=== PATIENT | female | born 1945 | race Caucasian/White ===

== ENCOUNTER → 2016-12-28 | Outpatient (CLI) | payer MEDICARE, OTHER ==
[~2016-12-28] MED LIST: AMLO10TA2 PO; ASPI1TAB57 PO; ASPI81CH6 CHEW; CALC1TAB87 PO; ENAL20TA PO; ENOX30P SQ; HYDR-3288 PO; METO50TA PO; THYR113. PO; VITA1000 PO
[2016-12-28 10:48] LABS: AUTOMATED NEUTROPHIL # 3.4 TH/MM3 (1.8-7.7); BASOPHIL # 0.1 TH/MM3 (0-0.2); BASOPHIL % 1.1 % (0.0-2.0); EOSINOPHIL # 0.4 TH/MM3 (0-0.4); EOSINOPHIL % 5.5 % (0.0-4.0); HEMATOCRIT 44.7 % (35.0-46.0); HEMO FLAGS DIFF FINAL; LYMPH % 30.8 % (9.0-44.0); MEAN CELL VOLUME 90.9 FL (80.0-100.0); MEAN CORPUSCULAR HEMOGLOBIN 30.4 PG (27.0-34.0); MEAN CORPUSCULAR HGB CONC 33.4 % (32.0-36.0); MONO % 10.6 % (0.0-8.0); PLATELET COUNT 200 TH/MM3 (150-450); RED BLOOD COUNT 4.92 MIL/MM3 (4.00-5.30); RED CELL DISTRIBUTION WIDTH 13.8 % (11.6-17.2); WHITE BLOOD COUNT 6.6 TH/MM3 (4.0-11.0)
[2016-12-28 10:58] LABS: BLOOD, URINE SMALL (NEG); COMMENT (UR) CULT NOT INDICATED; CULTURE IF INDICATED CULT NOT INDICATED; GLUCOSE,URINE NEG (NEG); KETONE, URINE NEG (NEG); MUCUS URINE FEW /lpf (OCC); NITRITE,URINE NEG (NEG); SQUAMOUS EPITHELIAL CELL URINE 2 /hpf (0-5); URINE COLOR YELLOW (YELLW/STRAW)
[2016-12-28 10:59] LABS: APTT (PATIENT) 24.4 SEC (24.3-30.1); INTERNATIONAL NORMALIZED RATIO 0.9 RATIO; PROTHROMBIN TIME - PATIENT 9.8 SEC (9.8-11.6)
[2016-12-28 11:08] LABS: WESTERGREN SEDIMENTATION RATE 1 mm/hr (0-30)
[2016-12-28 11:16] LABS: ALT (GPT) 24 U/L (10-53); ANION GAP 7 MEQ/L (5-15); AST (GOT) 19 U/L (15-37); BICARBONATE 31.7 MEQ/L (21.0-32.0); BLOOD UREA NITROGEN 13 MG/DL (7-18); CHLORIDE 105 MEQ/L (98-107); GLOMERULAR FILTRATION RATE 77 ML/MIN (>89); GLUCOSE,FASTING 87 MG/DL (74-99); POTASSIUM 5.1 MEQ/L (3.5-5.1); SODIUM (NA) 144 MEQ/L (136-145)
[2016-12-28 11:19] LABS: ALKALINE PHOSPHATASE 64 U/L (45-117); TOTAL BILIRUBIN ADULT 0.4 MG/DL (0.2-1.0)
--- NOTE | 2016-12-28 11:43 | RADRPT ---
EXAM DATE/TIME: 12/28/2016 11:33 [facility] COMPARISON: No previous studies available for comparison. INDICATIONS : Evaluate for pneumonia, pneumothorax, or communicable disease. Pre-op right total knee. MEDICAL HISTORY : Chronic obstructive pulmonary disease. Hypertension SURGICAL HISTORY : Hysterectomy. Thyroidectomy. ENCOUNTER: Initial ACUITY: 1 day PAIN SCORE: 0/10 LOCATION: Bilateral chest FINDINGS: PA and lateral views of the chest demonstrate a normal-sized cardiac silhouette with mild calcificati on of the aorta. There is no effusion, consolidation, or pneumothorax. The bones and soft tissues dem onstrate no acute abnormality. There are degenerative changes of the thoracic spine. Old healed left rib fractures are visualized. CONCLUSION: No acute cardiopulmonary abnormality is identified. Kermit Tamayo MD on December 28, 2016 at 11:39 Board Certified Radiologist. This report was verified electronically.
--- NOTE | 2016-12-28 17:58 | EKG ---
Date Performed: 12/28/2016 Time Performed: 09:21:54 PTAGE: 71 years EKG: SINUS BRADYCARDIA BORDERLINE ECG NO PREVIOUS TRACING DOCTOR: Toma Lopez Interpretating Date/Time 12/28/2016 17:56:59
== END ==
LOC: CPRE 08:52
PROVIDERS: ATTEND Orthopaedic Surgery Sports Medicine
DX: Z01.810 Encounter for preprocedural cardiovascular examination (principal); Z01.811 Encounter for preprocedural respiratory examination; Z01.812 Encounter for preprocedural laboratory examination; Z01.818 Encounter for other preprocedural examination; M25.50 Pain in unspecified joint; M17.11 Unilateral primary osteoarthritis, right knee; Z96.60 Presence of unspecified orthopedic joint implant; Z79.01 Long term (current) use of anticoagulants
CPT/HCPCS: 36415; 71020; 80053; 81001; 85025; 85610; 85652; 85730; 93005

== ENCOUNTER 2017-01-14 05:08 | Inpatient (IN) | payer MEDICARE, OTHER ==
[~2017-01-14] VITALS: Ht 165.1 cm; Wt 87.1 kg
[~2017-01-14 05:08] MED LIST changes: -ASPI81CH6 CHEW; -ENOX30P SQ; -HYDR-3288 PO
[2017-01-14] MEDS ORDERED: METOPROLOL TARTRATE 25 MG TAB PO PRN (05:45)
[2017-01-14] MEDS ORDERED: SODIUM CHLORIDE 0.9% IV SCH (05:45)
[2017-01-14] MEDS ORDERED: CHLORHEXIDINE GLUCONATE 4% SOLN 120 ML BTL TOPICAL SCH (05:45)
[2017-01-14] MEDS ORDERED: ceFAZolin 2 GM PREMIX 50 ML IV SCH (05:45)
[2017-01-14] MEDS ORDERED: CHLORHEXIDINE GLUCONATE 2 % 1 PACK (2 CLOTHS) TOPICAL PRN (05:45)
[2017-01-14] MEDS ORDERED: TRANEXAMIC ACID IV SCH (05:45)
[2017-01-14] MEDS ORDERED: ROPIVACAINE PERI-ARTICULAR INJECTION. P-ARTICULR SCH ×5 (05:45)
[2017-01-14] MEDS ORDERED: POVIDONE IODINE 7.5% SCRUB 118 ML BOTTLE TOPICAL SCH (05:45)
[2017-01-14] MEDS ORDERED: INSULIN HUMAN REGULAR 1,000 UNITS/10 ML VIAL SQ PRN (05:45)
[2017-01-14] MEDS ORDERED: VANCOMYCIN 1000 MG/NS 250 ML (for <70 kg) IV SCH ×2 (05:45)
[2017-01-14] MEDS ORDERED: POVIDONE IODINE 5% (ANTISEPSIS KIT) 4 APPLICATIONS EACH NARE PRN (05:45)
[2017-01-14] MEDS ORDERED: LACTATED RINGER'S 1000 ML IV PRN (05:45)
[2017-01-14] MEDS ORDERED: TRANEXAMIC PERI-ARTICULAR 3,000 MG/NS 100 ML P-ARTICULR SCH ×2 (05:45)
[2017-01-14] MEDS ORDERED: DEXAMETHASONE SOD PHOS 20 MG/5 ML VIAL IV PRN (05:45)
[2017-01-14] MEDS ORDERED: SODIUM CHLORID 0.9% 500 ML IV PRN (05:45)
[2017-01-14] MEDS ORDERED: GENTAMICIN SULFATE 80 MG/2 ML VIAL ONE (06:00)
[2017-01-14] MEDS ORDERED: BUPIVACAINE LIPOSOME PF 1.3% 20 ML VIAL ONE (06:36)
[2017-01-14] MEDS ORDERED: HYDR-3288 PO (06:51)
[2017-01-14] MEDS ORDERED: ENOX30P SQ (06:51)
[2017-01-14] MEDS ORDERED: ASPI81CH6 CHEW (06:52)
[2017-01-14] MEDS ORDERED: SODIUM CHLORIDE 0.9% FLUSH 5 ML FLUSH IVF PRN (07:00)
[2017-01-14] MEDS ORDERED: ZOLPIDEM TARTRATE 5 MG TAB PO PRN (07:00)
[2017-01-14] MEDS ORDERED: NALOXONE HCL 0.4 MG/ML AMP IV PUSH PRN (07:00)
[2017-01-14] MEDS ORDERED: BISACODYL 10 MG SUPP RECTAL PRN (07:00)
[2017-01-14] MEDS ORDERED: diphenhydrAMINE HCL 50 MG/ML VIAL IV PUSH PRN (07:00)
[2017-01-14] MEDS ORDERED: ONDANSETRON HCL 4 MG/2 ML VIAL IVP PRN (07:00)
[2017-01-14] MEDS ORDERED: MORPHINE SULFATE 4 MG/ML INJ IV PUSH PRN (07:00)
[2017-01-14] MEDS ORDERED: Post-op Orders (for Pharmacy) MISC XX ONE (07:00)
[2017-01-14] MEDS: ENALAPRIL MALEATE 10 MG TAB PO SCH ×2 (09:00→22:24)
[2017-01-14] MEDS: METOPROLOL TARTRATE 50 MG TAB PO SCH ×2 (09:00→22:21)
[2017-01-14] MEDS: CHOLECALCIFEROL (VIT D3) 1000 UNIT TAB PO SCH (09:00)
--- NOTE | 2017-01-14 09:18 | MP ---
cc: WILFRID CARVALHO DATE OF SURGERY: 01/14/2017 PREOPERATIVE DIAGNOSIS Right knee osteoarthritis. POSTOPERATIVE DIAGNOSES Right knee osteoarthritis. PROCEDURE Right total knee arthroplasty. SURGEON Dr. Wilfrid Carvalho. IMPACT HAMMER OPERATOR DONTAE Horton ANESTHESIA General with adductor canal femoral nerve block. ESTIMATED BLOOD LOSS 50 ccs. TOURNIQUET TIME 28 minutes at 250 mmHg. COMPLICATIONS None. IMPLANTS USED DePuy Attune size 7 posterior stabilized femoral component, size 6 rotating platform tibia baseplate, size 5 mm polyethylene tibial insert, size 35 patella. JUSTIFICATION The patient is a 71-year-old female with history of severe end-stage osteoarthritis involving the right knee. She has severe disabling pain with standing, walking, ambulation, weight-bear activities, severe pain at rest. She has failed greater than three months of nonoperative conservative treatment to include medication therapy, injections, ambulatory assisted aids, home exercise program, activity modification, weight loss. X-rays of the right knee reveal severe end-stage osteoarthritis, [id number] joint space narrowing, subchondral sclerosis, subchondral cyst osteophyte formation with a large valgus deformity and subluxation. The patient was counseled as to risks, benefits and alternatives to a total knee arthroplasty. The risks were discussed which include but not limited to anesthesia, bleeding, infection, damage to nerves, blood vessels, pain and stiffness, failure of components, blood clots, pulmonary embolism and even . The patient's pain is severe. She favored benefits over the risks, she did wish to proceed with surgery. PROCEDURE IN DETAIL A written consent was obtained. The patient was identified by name, taken to the operating room and placed supine on the operating table. General anesthesia was administered as well as 2 grams of IV Ancef and 1 gram of IV vancomycin. A well-padded tourniquet was placed in the right thigh. The right lower extremity was prepped and draped using isopropyl alcohol, Hibiclens solution and Chloraprep solution. After time-out was performed an Esmarch bandage was used to exsanguinate the right lower extremity and tourniquet was inflated to 250 mmHg. A longitudinal incision was made over the anterior aspect of the right knee. A medial parapatellar arthrotomy was performed and the patella was everted. The patella resection guide was used to resect 7 mm of patella. The size 35 mm guide was placed, three drill holes were placed and 35 mm trial fit well. Attention was turned to the femur where intramedullary guide domenico was placed and the distal femoral guide was set to remove 10 mm of distal femur 5 degrees off the anatomic valgus axis alignment. An oscillating saw was used to perform the distal femoral cut. Attention was turned to the tibia where an extramedullary tibial guide was set to remove 5 mm off the lowest portion of the medial tibial plateau. The tibia guide was pinned in place and tibia cut was performed. The 5-mm spacer block showed full extension. Attention was turned back to the femur where AP sizing block measured a 7. The anterior reference 3 degree external rotation guide was used to pin a size [address] The anterior, posterior and chamfer cuts were performed. The anterior, posterior and chamfer cuts were performed. A size 7 PCL box cut was pinned in place and PCL was boxed out with an oscillating saw. The medial and lateral meniscus remnants were removed as well as bone and soft tissue debris from posterior portion of the knee. A size 7 tibia baseplate was pinned in place. The tibia was drilled and punched. Trial components were evaluated and final components cemented in place. With the current components, the leg could achieve full extension 0 degrees and flexion 140, no evidence of tibial lift-off, varus-valgus balance appeared appropriate and symmetric and the patella was noted to track centrally. With the tourniquet deflated Bovie cautery was used for hemostasis. Surgical wounds were thoroughly irrigated with sterile saline pulse lavage antibiotic impregnated solution. The arthrotomy incision was closed with #1 Vicryl suture, subcutaneous layer with 2-0 Vicryl suture, skin was closed with Dermabond. Sterile dressings were applied. The patient tolerated the procedure well with no intraoperative complications noted. Oneil Colvin, Physician Heat Treat Operator Certified was present during the entire procedure to include patient positioning, the procedure itself. The medical necessity of physician certified pharmacist assistant was indicated in this case due to the complexity of the procedure. He assisted with appropriate manipulation of the leg and also traction of muscle, tendon, bone, neurovascular structures. He assisted with preparation of bone and also implantation of the prosthetic replacement. MD MARISSA Virgen/FLORI /8:20 AM 8:53 AM
[2017-01-14] MEDS: SODIUM CHLORIDE 0.9% FLUSH 5 ML FLUSH IVF SCH ×2 (09:28→22:21)
[2017-01-14] MEDS: SODIUM CHLOR 0.9% 1000 ML INJ 1,000 ML IV SCH ×2 (09:28→18:43)
[2017-01-14] MEDS ORDERED: DO NOT ADM ANY ANTICOAGULANT DRUGS PRN (09:30)
[2017-01-14 09:50] VITALS: BP 116/62; PULSE 57; RESP 18; TEMP 95.8; O2SAT 94
--- NOTE | 2017-01-14 10:01 | RADRPT ---
EXAM DATE/TIME: 01/14/2017 09:00 [facility] COMPARISON: No previous studies available for comparison. INDICATIONS : Post-op right knee replacement. MEDICAL HISTORY : None. SURGICAL HISTORY : Total knee replacement, right. ENCOUNTER: Initial ACUITY: 1 day PAIN SCORE: 0/10 LOCATION: Right Knee FINDINGS: AP and lateral views of the knee following arthroplasty reveals a prosthesis in anatomic alignment. F racture is not appreciated. Surgical drain is evident CONCLUSION: Status post total knee arthroplasty. Alex Silva MD FACR Board Certified Radiologist. This report was verified electronically.
[2017-01-14] MEDS: ACETAMINOPHEN/HYDROcodone 325 MG/7.5 MG TAB PO PRN ×4 (10:03→22:20)
[2017-01-14 12:00] VITALS: BP 136/85; PULSE 56; RESP 17; TEMP 97.9; O2SAT 97
[2017-01-14] MEDS ORDERED: LACTATED RINGER'S 1000 ML INJ 1,000 ML IV ONE (12:00)
[2017-01-14] MEDS ORDERED: ePHEDrine/NS 25 MG/5 ML SYR IV ONE (12:00)
[2017-01-14] MEDS ORDERED: MIDAZOLAM HCL 2 MG/2 ML VIAL IV ONE (12:00)
[2017-01-14] MEDS ORDERED: PROPOFOL 200 MG/20 ML AMP IV ONE (12:00)
[2017-01-14] MEDS ORDERED: LIDOCAINE HCL 1% PF 5 ML SYRINGE OTHER ONE (12:00)
[2017-01-14] MEDS ORDERED: ONDANSETRON HCL 4 MG/2 ML VIAL IV PUSH ONE (12:00)
[2017-01-14] MEDS ORDERED: GLYCOPYRROLATE 1 MG/5 ML SYRINGE IV PUSH ONE (12:00)
[2017-01-14] MEDS ORDERED: SODIUM CHLORIDE 0.9% 20 ML VIAL IV ONE (12:00)
[2017-01-14] MEDS ORDERED: NEOSTIGMINE 3 MG/3 ML SYR IV ONE (12:00)
[2017-01-14] MEDS ORDERED: ROCURONIUM INJ 50 MG/5 ML SYRINGE IV PUSH ONE (12:00)
[2017-01-14] MEDS ORDERED: MORPHINE SULFATE 4 MG/ML INJ IV ONE (12:00)
--- NOTE | 2017-01-14 15:54 | PD.CONS ---
HPI Service [facility] Consult Requested By Dr. Cartagena Reason for Consult Medical management Primary Care Physician Tiffanie Murray DO Diagnoses: History of Present Illness The patient is a 71-year-old female with past medical history of hypertension and COPD who is presenting to the hospital for elective right knee replacement. She said she has been having arthritis in her right knee for the past 5 or 6 years. She believes she fell on it along time ago and that started the pain. She says over the years she has had a couple of meniscus repairs on that knee as well. She has tried physical therapy and steroid injections but they have not helped much. She does walk on her own but when she goes to the grocery store she says she uses buggies. She takes ibuprofen for pain control every once in a while. She tolerated the procedure well and is currently not in much pain. She has been working with physical therapy. She is tolerating a diet. She is breathing comfortably. She has no acute concerns at this time. Review of Systems Except as stated in HPI: all other systems reviewed are Neg Past Family Social History Allergies: Coded Allergies: No Known Allergies (Unverified , 12/28/16) Past Medical History Hypertension COPD Past Surgical History Tonsillectomy 2 Thyroidectomy Hysterectomy Right meniscal repair 2 Active Ordered Medications Current Medications Medications (Trade) Dose Ordered Sig/Lesly Route Start Time Stop Time Status Last Admin (Decadron Inj) 10 mg LEAK INSPECTOR PRN IV 01/14/17 05:45 01/15/17 05:44 01/14/17 06:15 (Betadine 7.5% Scrub) 1 applic ONCE TOPICAL 01/14/17 05:45 01/17/17 05:44 (Hibiclens 4% Top Soln) 1 applic ONCE TOPICAL 01/14/17 05:45 01/17/17 05:44 01/14/17 06:10 Cefazolin Sodium/ Dextrose 50 ml @ 100 mls/hr LEAK INSPECTOR IV 01/14/17 05:45 01/17/17 05:44 01/14/17 06:25 Vancomycin HCl 1000 mg/Sodium Chloride 250 ml @ 250 mls/hr LEAK INSPECTOR IV 01/14/17 05:45 01/17/17 05:44 01/14/17 06:30 Tranexamic Acid 1305 mg/Sodium Chloride 113.05 ml @ 200 mls/ hr ONCE IV 01/14/17 05:45 01/14/17 16:00 01/14/17 07:01 Ropivacaine 24.63 ml/Ketorolac Tromethamine 30 mg/Epinephrine HCl 0.5 mg/ Clonidine 80 mcg/ Sodium Chloride 100 ml @ 200 mls/hr ONCE P-ARTICULR 01/14/17 05:45 01/14/17 17:00 01/14/17 08:03 Tranexamic Acid 3000 mg/Sodium Chloride 130 ml @ 260 mls/hr ONCE P-ARTICULR 01/14/17 05:45 01/14/17 16:00 01/14/17 08:03 Lactated Ringer's 1,000 ml @ 30 mls/hr Q24H PRN IV 01/14/17 05:45 01/17/17 05:44 01/14/17 06:10 Sodium Chloride 500 ml @ 30 mls/hr [id number] PRN IV 01/14/17 05:45 01/17/17 05:44 (Lopressor) 25 mg LEAK INSPECTOR PRN PO 01/14/17 05:45 01/17/17 05:44 (Betadine 5% Antisepsis Kit) 1 applic LEAK INSPECTOR PRN EACH NARE 01/14/17 05:45 01/17/17 05:44 01/14/17 06:20 (Chlorhexidine 2% Cloth) 3 pack LEAK INSPECTOR PRN TOPICAL 01/14/17 05:45 01/17/17 05:44 (NovoLIN R INJ) See Protocol Table ... LEAK INSPECTOR PRN SQ 01/14/17 05:45 01/17/17 05:44 (Norvasc) 10 mg DAILY PO 01/14/17 09:00 (Vitamin D3) 1,000 units DAILY PO 01/14/17 09:00 (Vasotec) 20 mg BID PO 01/14/17 09:00 (Lopressor) 50 mg BID PO 01/14/17 09:00 Non-Formulary Medication 113.75 mg DAILY PO 01/14/17 09:00 UNV Sodium Chloride 1,000 ml @ 100 mls/hr Q10H IV 01/14/17 06:48 01/14/17 09:28 (NS Flush) 2 ml UNSCH PRN IVF 01/14/17 07:00 (NS Flush) 2 ml BID IVF 01/14/17 09:00 01/14/17 09:28 Cefazolin Sodium 1000 mg/Sodium Chloride 100 ml @ 200 mls/hr Q6H IV 01/14/17 13:00 01/15/17 01:29 01/14/17 12:45 (Lovenox Inj) 30 mg Q24H SQ 01/14/17 19:00 (Morphine Inj) 3 mg Q3H PRN IV PUSH 01/14/17 07:00 ([place] 7.5-325 Mg) 1 tab Q4H PRN PO 01/14/17 07:00 01/14/17 15:17 ([place] 7.5-325 Mg) 2 tab Q4H PRN PO 01/14/17 07:00 01/14/17 10:03 (Theragran M Tab) 1 tab BID PO 01/15/17 21:00 03/16/17 20:59 (Zofran Inj) 4 mg Q6H PRN IVP 01/14/17 07:00 (Colace) 100 mg BID PO 01/15/17 21:00 (Ambien) 5 mg HS PRN PO 01/14/17 07:00 (Dulcolax Supp) 10 mg DAILY PRN RECTAL 01/14/17 07:00 (Narcan Inj) 0.4 mg UNSCH PRN IV PUSH 01/14/17 07:00 (Benadryl Inj) 25 mg Q6H PRN IV PUSH 01/14/17 07:00 Miscellaneous Information ALL NURSING DEPARTME... UNSCH PRN .XX 01/14/17 09:30 01/15/17 09:29 Family History The patient denies any significant family history Social History The patient quit smoking in 1997. She never drank alcohol. Physical Exam Vital Signs Vital Signs Date Time Temp Pulse Resp B/P (MAP) Pulse Ox O2 Delivery O2 Flow Rate FiO2 01/14/17 12:00 97.9 56 17 136/85 (102) 97 01/14/17 09:50 95.8 57 18 116/62 (80) 94 01/14/17 09:30 97.6 60 16 111/58 (75) 95 Nasal Cannula 2 01/14/17 09:15 56 18 107/57 (74) 94 Nasal Cannula 2 01/14/17 09:00 59 19 102/55 (71) 95 Nasal Cannula 2 01/14/17 08:45 62 18 99/55 (70) 96 Nasal Cannula 2 01/14/17 08:39 97.7 70 20 95/65 (75) 94 Nasal Cannula 2 01/14/17 06:02 97.9 53 16 141/72 (95) 99 Physical Exam GENERAL: This is a well-nourished, well-developed patient, in no apparent distress. SKIN: No rashes, ecchymoses or lesions. Cool and dry. HEAD: Atraumatic. Normocephalic. No temporal or scalp tenderness. EYES: Pupils equal round and reactive. Extraocular motions intact. No scleral icterus. No injection or drainage. ENT: Nose without bleeding, purulent drainage or septal hematoma. Throat without erythema, tonsillar hypertrophy or exudate. Uvula midline. Airway patent. NECK: Trachea midline. No JVD or lymphadenopathy. Supple, nontender, no meningeal signs. CARDIOVASCULAR: Regular rate and rhythm without murmurs, gallops, or rubs. RESPIRATORY: Clear to auscultation. Breath sounds equal bilaterally. No wheezes , rales, or rhonchi. GASTROINTESTINAL: Abdomen soft, non-tender, nondistended. No hepato-splenomegaly , or palpable masses. No guarding. MUSCULOSKELETAL: Trace edema noted in left lower extremity. Right lower extremity is currently bandaged from midthigh to distal foot and currently in a mobilizer. NEUROLOGICAL: Awake and alert. Cranial nerves II through XII intact. Motor and sensory grossly within normal limits. Five out of 5 muscle strength in all muscle groups. Normal speech. PSYCH: Mood and affect appropriate. Assessment and Plan Assessment and Plan Severe osteoarthritis The patient is status post right total knee replacement 01/14/17. She tolerated the procedure well. - Wound care, weightbearing and anticoagulation per orthopedic surgery. - Continue physical therapy. - Incentive spirometry. - Pain control with a bowel regimen. Hypertension Well-controlled at this time. - Continue home medications. Hypothyroidism Secondary to thyroidectomy. - Continue with thyroid supplementation. COPD The patient quit smoking in 1997. She is breathing comfortably at this time. - Nebs and oxygen as needed. PPx: Per surgery Discussed Condition With Pt, pt's family Bhaskar James DO Jan 14, 2017 15:54
[2017-01-14 16:00] VITALS: BP 102/62; PULSE 56; RESP 17; TEMP 95.3; O2SAT 94
[2017-01-14] MEDS ORDERED: RESP: ALBUTEROL 2.5 MG/IPRATROPIUM 0.5 MG NEB (PRN) NEB (16:00)
[2017-01-14 17:14] VITALS: O2SAT 97
[2017-01-14 19:00] VITALS: BP 149/79; PULSE 65; RESP 17; TEMP 96.9; O2SAT 98
[2017-01-14] MEDS ORDERED: ENOXAPARIN SODIUM 30 MG/0.3 ML SYRINGE SQ SCH (21:00)
[2017-01-15] VITALS: BP 116/64; PULSE 67; RESP 16; TEMP 96.7; O2SAT 92
[2017-01-15] MEDS: ACETAMINOPHEN/HYDROcodone 325 MG/7.5 MG TAB PO PRN ×3 (02:42→11:50)
[2017-01-15] MEDS: SODIUM CHLOR 0.9% 1000 ML INJ 1,000 ML IV SCH ×2 (02:48→12:48)
[2017-01-15 04:00] VITALS: BP 98/64; PULSE 56; RESP 17; TEMP 97.9; O2SAT 95
[2017-01-15 07:36] LABS: HEMATOCRIT 36.1 % (35.0-46.0); MEAN CELL VOLUME 90.2 FL (80.0-100.0); MEAN CORPUSCULAR HEMOGLOBIN 29.7 PG (27.0-34.0); MEAN CORPUSCULAR HGB CONC 32.9 % (32.0-36.0); PLATELET COUNT 161 TH/MM3 (150-450); RED CELL DISTRIBUTION WIDTH 13.7 % (11.6-17.2); REVIEW FLAG FINAL; WHITE BLOOD COUNT 12.5 TH/MM3 (4.0-11.0)
[2017-01-15] MEDS: CHOLECALCIFEROL (VIT D3) 1000 UNIT TAB PO SCH (07:51)
[2017-01-15] MEDS: SODIUM CHLORIDE 0.9% FLUSH 5 ML FLUSH IVF SCH (07:56)
[2017-01-15] MEDS: METOPROLOL TARTRATE 50 MG TAB PO SCH (07:56)
[2017-01-15] MEDS: ENALAPRIL MALEATE 10 MG TAB PO SCH (07:57)
[2017-01-15 07:58] LABS: BICARBONATE 25.4 MEQ/L (21.0-32.0); POTASSIUM 4.5 MEQ/L (3.5-5.1)
[2017-01-15 08:00] VITALS: BP 119/62; PULSE 54; RESP 18; TEMP 96.8; O2SAT 92
--- NOTE | 2017-01-15 08:40 | PD.ORT.PN ---
Subjective Post Op Day #: 1 Subjective Remarks pain minimal. Objective Vitals Vital Signs Date Time Temp Pulse Resp B/P (MAP) Pulse Ox O2 Delivery O2 Flow Rate FiO2 01/15/17 04:00 97.9 56 17 98/64 (75) 95 01/15/17 03:42 17 01/15/17 00:00 96.7 67 16 116/64 (81) 92 01/14/17 23:55 Nasal Cannula 2.00 01/14/17 19:40 18 01/14/17 19:00 96.9 65 17 149/79 (102) 98 01/14/17 17:14 97 01/14/17 16:00 95.3 56 17 102/62 (75) 94 01/14/17 12:00 97.9 56 17 136/85 (102) 97 01/14/17 09:50 95.8 57 18 116/62 (80) 94 01/14/17 09:30 97.6 60 16 111/58 (75) 95 Nasal Cannula 2 01/14/17 09:15 56 18 107/57 (74) 94 Nasal Cannula 2 01/14/17 09:00 59 19 102/55 (71) 95 Nasal Cannula 2 01/14/17 08:45 62 18 99/55 (70) 96 Nasal Cannula 2 I/O 01/14/17 01/14/17 01/14/17 01/15/17 01/15/17 01/15/17 07:00 15:00 23:00 07:00 15:00 23:00 Intake Total 1990 ml 930 ml Output Total 350 ml 1600 ml Balance 1640 ml -670 ml Intake Oral 480 ml 830 ml IV Total 10 ml 100 ml Other 1500 ml Output Urine Total 250 ml 1600 ml Other 100 ml # Voids 2 # Bowel Movements 0 0 Result Diagram: 01/15/17 0700 01/15/17 0700 Objective Remarks in chair, nad incision no erythema, no drainage neg homans nvi Assessment & Plan Ortho Post Op Day #: 1 Problem List: Assessment and Plan s/p R TKA wbat daily dressing changes lovenox d/c planning home with [facility] and pt - cleared today if does well in PT rx in chart f/up dr. adkins 2 weeks Isauro Colvin Jan 15, 2017 08:40
--- NOTE | 2017-01-15 08:41 | HHI.DCPOC ---
Discharge Care Plan Diagnosis: (1) Primary localized osteoarthrosis, lower leg Your Health Problems Are: Difficulty with ADL Goals to Promote Your Health * To prevent worsening of your condition and complications * To maintain your health at the optimal level Directions to Meet Your Goals Take your medications as prescribed Follow your dietary instruction Follow activity as directed Keep your appointments as scheduled Take your immunizations and boosters as scheduled If your symptoms worsen call your PCP, if no PCP go to Urgent Care Center or Emergency Room Smoking is Dangerous to Your Health. Avoid second hand smoke Call the 24-hour hour crisis hotline for domestic abuse at Isauro Colvin Jan 15, 2017 08:41
--- NOTE | 2017-01-15 08:42 | HHI.FF ---
Face to Face Verification Diagnosis: (1) Primary localized osteoarthrosis, lower leg Physical Therapy Gait training, Safety evaluation, Transfer training, bed to chair Knee: Total knee, Protocol: Right, Full weight bearing Right LE Weight Bearing: WB as tolerated Nursing RN: 3 days/week x 2 weeks Nursing: Erum teaching, Dressing changes Dressing Changes: Daily dressing change I have seen patient Lupe Oconnell on 01/15/17. My clinical findings support the need for the requested home health care services because: Limited ability to care for self High risk of falls I certify that my clinical findings support that this patient is homebound because: Post-op weakness Unsteady gait/balance Isauro Colvin Jan 15, 2017 08:42
[2017-01-15 09:17] VITALS: O2SAT 95
--- NOTE | 2017-01-15 09:29 | HHI.PR ---
Subjective Remarks Follow-up right knee surgery. States she is doing okay. Eager to be discharged today. Seen with . Discussed with RN Objective Vitals Vital Signs Date Time Temp Pulse Resp B/P (MAP) Pulse Ox O2 Delivery O2 Flow Rate FiO2 01/15/17 08:00 96.8 54 18 119/62 (81) 92 01/15/17 04:00 97.9 56 17 98/64 (75) 95 01/15/17 03:42 17 01/15/17 00:00 96.7 67 16 116/64 (81) 92 01/14/17 23:55 Nasal Cannula 2.00 01/14/17 19:40 18 01/14/17 19:00 96.9 65 17 149/79 (102) 98 01/14/17 17:14 97 01/14/17 16:00 95.3 56 17 102/62 (75) 94 01/14/17 12:00 97.9 56 17 136/85 (102) 97 01/14/17 09:50 95.8 57 18 116/62 (80) 94 01/14/17 09:30 97.6 60 16 111/58 (75) 95 Nasal Cannula 2 I/O 01/14/17 01/14/17 01/14/17 01/15/17 01/15/17 01/15/17 07:00 15:00 23:00 07:00 15:00 23:00 Intake Total 1990 ml 930 ml Output Total 350 ml 1600 ml Balance 1640 ml -670 ml Intake Oral 480 ml 830 ml IV Total 10 ml 100 ml Other 1500 ml Output Urine Total 250 ml 1600 ml Other 100 ml # Voids 2 # Bowel Movements 0 0 Result Diagram: 01/15/17 0701/15/17 0700 Imaging Last Impressions Knee X-Ray 01/14/17 0648 Signed Impressions: Service Date/Time: Saturday, January 14, 2017 09:00 - CONCLUSION: Status post total knee arthroplasty. Alex Silva MD Objective Remarks GENERAL: This is a well-nourished, well-developed patient, in no apparent distress. SKIN: No rashes, ecchymoses or lesions. Cool and dry. CARDIOVASCULAR: Regular rate and rhythm without murmurs, gallops, or rubs. RESPIRATORY: Clear to auscultation. Breath sounds equal bilaterally. No wheezes , rales, or rhonchi. GASTROINTESTINAL: Abdomen soft, non-tender, nondistended. No guarding. MUSCULOSKELETAL: Trace edema noted in left lower extremity. Right lower extremity is currently bandaged from midthigh to distal foot NEUROLOGICAL: Awake and alert. Cranial nerves II through XII intact. Motor and sensory grossly within normal limits. Five out of 5 muscle strength in all muscle groups. Normal speech. PSYCH: Mood and affect appropriate. A/P Assessment and Plan Severe osteoarthritis The patient is status post right total knee replacement 01/14/17. She tolerated the procedure well. - Wound care, weightbearing and anticoagulation per orthopedic surgery. - Continue physical therapy. - Incentive spirometry. - Pain control with lortab and MSO4, ct bowel regimen. Hypertension Well-controlled at this time. - Continue home medications Enalapril, Norvasc and Lopressor. Hypothyroidism Secondary to thyroidectomy. - Continue with thyroid supplementation. COPD The patient quit smoking in 1997. She is breathing comfortably at this time. - Nebs and oxygen as needed. Leukocytosis likely reactive. Monitor Hyperglycemia. Mild. Monitor PPx: Per surgery Discharge Planning Per Jean Peter MD Jan 15, 2017 09:29
[2017-01-15 12:00] VITALS: BP 128/64; PULSE 58; RESP 18; TEMP 96.3; O2SAT 92
[2017-01-15 12:50] VITALS: RESP 18
[2017-01-15] MEDS ORDERED: DOCUSATE SODIUM 100 MG CAP PO SCH (21:00)
[2017-01-15] MEDS ORDERED: MULTIVITAMINS/MINERALS THERAPEUTIC TAB PO SCH (21:00)
[2017-01-16] MEDS ORDERED: THYROID PO SCH (06:00)
--- NOTE | 2017-01-16 09:24 | MD ---
cc: WILFRID CARVALHO M.D. ADMISSION DATE: 01/14/2017 DISCHARGE DATE: 01/15/2017 ADMITTING DIAGNOSIS Severe degenerative osteoarthritis, right knee. DISCHARGE DIAGNOSIS Severe degenerative osteoarthritis, right knee. HISTORY OF PRESENT ILLNESS Mrs. Oconnell is a 71-year-old female who presented to the [facility] for evaluation by Dr. Wilfrid Carvalho regarding her severe and progressive right knee pain. The patient states the pain has been bothering her for several years and is currently inhibiting her activities of daily living. She states it is a severe constant aching sensation aggravated by weightbearing activities. She has no alleviating factors at this point in time, although in the past she has tried medications, bracing, physical therapy, home exercise program and multiple corticosteroid injections without long-lasting relief. She does have x-ray evidence of severe degenerative osteoarthritis of the right knee. While in the office the patient was counseled on her diagnosis and treatment options; risks, benefits and indications of all were discussed. The patient did elect to proceed with surgical intervention to include a right total knee arthroplasty. Date of surgery 01/14/2017, right total knee arthroplasty. POST-OP After surgery the patient was admitted to [facility] where she received appropriate medical management, pain control, DVT prophylaxis as well as physical therapy. DISCHARGE Once being discharged from the hospital the patient has been cleared to go home where she will receive home health care and home physical therapy. She is in stable condition. She may weight bear as tolerated. The patient is to receive daily dressing changes and has been instructed on proper wound care management. She has been provided prescriptions for pain control as well as DVT prophylaxis medication. She has also been provided a follow-up appointment in approximately 2 weeks from her date of surgery. The patient has asked appropriate questions which have been answered. The patient has been discharged. Dictated by: Wilfrid Colvin PA-C MD MARISSA Virgen/GEE /7:41 AM /9:13 AM
== END 2017-01-15 15:45 | disposition home health service (06) | DRG 470 ==
LOC: HSDI 05:08 → N06A 09:45
PROVIDERS: ADMIT Orthopaedic Surgery Sports Medicine; ATTEND Orthopaedic Surgery Sports Medicine
PROC: 3E0T3BZ Introduction of Anesthetic Agent into Peripheral Nerves and Plexi, Percutaneous Approach (ICD-10-PCS; 2017-01-14)
PROC: 0SRC0J9 Replacement of Right Knee Joint with Synthetic Substitute, Cemented, Open Approach (ICD-10-PCS; principal; 2017-01-14 06:46)
DX: M17.11 Unilateral primary osteoarthritis, right knee (principal); J44.9 Chronic obstructive pulmonary disease, unspecified; I10 Essential (primary) hypertension; E89.0 Postprocedural hypothyroidism; M21.061 Valgus deformity, not elsewhere classified, right knee; D72.829 Elevated white blood cell count, unspecified; R73.9 Hyperglycemia, unspecified; Z87.891 Personal history of nicotine dependence
CPT/HCPCS: 73560; 80048; 83735; 85027; 86077; 86850; 86870; 86900; 86901; 86902; 86920; 86922; 94150; C1776; C9290; J0690; J0735; J1100; J1580; J1650; J1885; J2250; J2270; J2405; J2710; J2795; J3010; J3370; J7030; J7050; J7120; L1830

== ENCOUNTER 2018-04-07 05:15 | Inpatient (IN) ==
[~2018-04-07 05:15] MED LIST changes: -AMLO10TA2 PO; -ASPI1TAB57 PO; -CALC1TAB87 PO; +Chlorhexidine 4% Topical 120 APPLIC/120 ML Bottle TOPICAL SCH; -ENAL20TA PO; -METO50TA PO; -THYR113. PO; -VITA1000 PO
[2018-04-07] MEDS ORDERED: Metoprolol Tartrate 25 MG Tablet PO ONE (05:40)
[2018-04-07] MEDS ORDERED: Chlorhexidine Gluconate 2% 1 Pack (2 Cloths) TOPICAL ONE (05:40)
[2018-04-07] MEDS ORDERED: Dexamethasone Inj 20 MG/5 ML Vial IV.PUSH SCH (06:00)
[2018-04-07] MEDS ORDERED: ceFAZolin 2 GM Premix Inj 2 GM/50 ML PIGGYBACK IV.SIG SCH (06:00)
[2018-04-07] MEDS ORDERED: Sodium Chlor 0.9% Inj 500 ML IV.SIG SCH (06:00)
[2018-04-07] MEDS ORDERED: Dexamethasone PF Inj 10 MG/ML Vial ONE (06:05)
[2018-04-07] MEDS: Vancomycin Inj 1,000 MG in Sodium Chlor 0.9% Inj 250 ML IV.SIG SCH ×2 (06:18→06:20)
[2018-04-07] MEDS ORDERED: Acetaminophen 500 MG Tablet ONE (06:32)
[2018-04-07] MEDS ORDERED: Zolpidem Tartrate 5 MG Tablet PO PRN (06:39)
[2018-04-07] MEDS ORDERED: HYDROmorphone PF Inj 1 MG/ML Ampul IV.PUSH PRN (06:39)
[2018-04-07] MEDS ORDERED: Post-op Orders (for Pharmacy) OTHER STA (06:39)
[2018-04-07] MEDS ORDERED: Bisacodyl 10 MG Supp RECTAL PRN (06:39)
[2018-04-07] MEDS ORDERED: Neostigmine Inj 5 MG/5 ML Syringe IV.PUSH ONE (06:44)
[2018-04-07] MEDS ORDERED: Glycopyrrolate Inj 1 MG/5 ML Syringe IV.PUSH ONE (06:44)
[2018-04-07] MEDS ORDERED: Lidocaine PF 1% Inj 5 ML Syringe OTHER ONE (06:44)
[2018-04-07] MEDS ORDERED: SODIUM CHLOR 0.9% IV.SIG SCH (07:00)
[2018-04-07] MEDS ORDERED: Sodium Chlor 0.9% Inj 100 ML, Tranexamic Acid Inj 3,000 MG P-ARTICULR SCH ×2 (07:00)
[2018-04-07] MEDS ORDERED: TRANEXAMIC ACID IV.SIG SCH (07:00)
[2018-04-07] MEDS ORDERED: Sodium Chlor 0.9% Inj 40 ML, Bupivacaine Liposo PF 1.3% Inj 20 ML P-ARTICULR SCH ×2 (07:00)
--- NOTE | 2018-04-07 08:19 | P.OP ---
Procedure: PREOPERATIVE DIAGNOSIS: Left hip osteoarthritis. POSTOPERATIVE DIAGNOSIS: Left hip osteoarthritis. PROCEDURE PERFORMED: Left total hip arthroplasty posterior approach. SURGEON: Isauro Cartagena MD UNION ORGANISER: DONTAE Johnson ANESTHESIA: General. ESTIMATED BLOOD LOSS: 200 mL COMPLICATIONS: None. IMPLANT USED: Monica size 5 standard offset press-fit Accolade 2 l femoral stem [] 4 mm solid cup [] 54 x 36 mm Poly insert liner 10 degree posterior high wall [] femoral head 36 mm ceramic [] neck length -2.5 [] JUSTIFICATION: This patient presents to the orthopedic clinic and was evaluated by the undersigned with chief complaint of severe left hip pain. The pain is constant and progressive and interfering with activities of daily living. The patient has failed greater than 3 months of nonoperative conservative treatment to include analgesic and nonsteroidal anti-inflammatory medications, physical therapy, cortisone injections, ambulatory assistive aids, home exercise program, activity modification and weight loss. X-rays of the left hip reveal severe osteoarthritis with [id number] joint space narrowing, subchondral sclerosis, subchondral cysts, osteophyte formation with deformity and subluxation. The patient was counseled on risks, benefits, and alternatives to a total hip arthroplasty. The risks were discussed, which include, but are not limited to anesthesia, bleeding, infection, damage to nerves and blood vessels, pain, stiffness, failure of components, fracture, dislocations, leg length discrepancies, blood clots, pulmonary embolism and even . The patient favors the benefits over the risks and did wish to proceed with surgery. PROCEDURE IN DETAIL: Written consent was obtained. The patient was identified by name, taken to the operating room and placed supine on the operating table. General anesthesia administered, along with preoperative IV antibiotic therapy. The patient was then carefully turned to a right lateral decubitus position. A padded arm roll was placed. All bony prominences and compression points were well padded, and the patient's neck position neutral. The left hip and lower extremity were then prepped and draped using isopropyl alcohol, Hibiclens solution and ChloraPrep solution. After a timeout was performed, a longitudinal incision was made over the posterolateral aspect of the left hip. The fascial layer was incised and retracted. Careful attention was paid to protect the sciatic nerve. The piriformis and capsule was incised and tagged with #2 FiberWire suture. The hip was then dislocated posteriorly. An oscillating saw was used to perform a femoral neck cut. The osteoarthritic femoral head and neck component was removed. A 10-blade scalpel was used to excise the labrum. Sequential reaming of the acetabulum was then performed.. A titanium acetabular cup was implanted in a press-fit manner, with approximately 45 degrees of abduction and 15 degrees of anteversion. There was good purchase and fixation after insertion of the cup. A screw hole eliminator was placed, followed by the degree posterior high wall high cross-linked polyethylene liner. The liner was impacted in placed and tested for stability. Attention was turned to the femur where a box osteotome was used to gain entrance into the intramedullary canal of the femur, followed by canal finder and lateralizing reamer. Sequential broaching was performed, followed by calcar planer. Trial components were evaluated and final components subsequently implanted. With the current components, the leg achieved full extension and external rotation without evidence of anterior instability or impingement. The hip could be flexed to 90 degrees and internally rotated to 70 degrees before evidence of posterior stability. Soft tissue tension was appropriate and clinically the leg lengths felt relatively symmetric. The surgical wound was thoroughly irrigated with sterile saline pule lavage antibiotic impregnated solution. The piriformis and capsule were repaired with #2 Fiberwire suture. The fascial layer was closed with #1-Vicryl suture, subcutaneous layer with 2-0 Vicryl suture. Skin was closed with Dermabond. Sterile dressing were applied. The patient tolerated the procedure well. No intraoperative complications noted. Isauro Colvin, Physician Deputy [employer]ified was present during the entire procedure to include patient positioning, the procedure itself. The medical necessity of a physician records management assistant was indicated in this case due to the complexity of the procedure. He assisted with appropriate exposure and manipulation of the leg, along with retraction of muscle, tendon bone and neurovascular structures. He assisted with preparation of bone and also implantation of the prosthetic replacement. There was a nursing surgical services director that assisted with management of the instruments but was not available to assist with the surgical procedure itself. Surgeon: Isauro Cartagena MD
[2018-04-07] MEDS ORDERED: fentaNYL Citrate Inj 100 MCG/2 ML Ampul ONE (08:47)
[2018-04-07] MEDS ORDERED: Morphine Inj 4 MG/ML Vial ONE (08:47)
[2018-04-07] MEDS ORDERED: *morphine SULFATE 10 MG/ML PERIprocedure ONLY ONE ×2 (08:49→09:00)
--- NOTE | 2018-04-07 09:27 | XR ---
EXAM DATE: 04/07/2018 9:24 AM EST AGE/SEX: 72 years / Female INDICATIONS: Post-op left hip. CLINICAL DATA: This is the patient's initial encounter. Patient reports that signs and symptoms have been present for 1 day and indicates a pain score of Nonresponsive. MEDICAL/SURGICAL HISTORY: None. None. COMPARISON: No prior exams available for comparison. FINDINGS: The patient is status post a total hip arthroplasty. Prosthesis is well-seated. Alignment is anatomic . A fracture is not appreciated. CONCLUSION: Anatomic alignment. Alex Silva MD FACR Electronically signed by: Alex Silva MD Board Certified Radiologist 04/07/2018 9:26 AM EST
[2018-04-07] MEDS: Metoprolol Tartrate 50 MG Tablet PO SCH ×2 (09:28→20:56)
[2018-04-07] MEDS: amLODIPine 10 MG Tablet PO SCH (09:29)
[2018-04-07] MEDS: Multivitamin/Minerals Therapeutic Tablet PO SCH ×2 (12:13→20:55)
[2018-04-07] MEDS: Senna/Docusate Sodium 8.6/50 MG Tablet PO SCH ×2 (12:13→20:55)
[2018-04-07] MEDS: ceFAZolin 2 GM Premix Inj 2 GM/50 ML PIGGYBACK IV.SIG SCH ×2 (12:15→17:27)
[2018-04-08] MEDS: ceFAZolin 2 GM Premix Inj 2 GM/50 ML PIGGYBACK IV.SIG SCH (00:51)
[2018-04-08 06:47] LABS: Hematocrit 35.1 % (35.0-46.0); Hemoglobin 11.8 gm/dL (11.6-15.3)
[2018-04-08] MEDS: Metoprolol Tartrate 50 MG Tablet PO SCH (08:19)
[2018-04-08] MEDS: Senna/Docusate Sodium 8.6/50 MG Tablet PO SCH (08:19)
[2018-04-08] MEDS: Multivitamin/Minerals Therapeutic Tablet PO SCH (08:19)
[2018-04-08] MEDS: amLODIPine 10 MG Tablet PO SCH (08:19)
--- NOTE | 2018-04-08 08:26 | P.PNOP ---
Subjective Interval history: pain tolerable. doing well. Physical Exam Vital signs: Vital Signs 04/07/18 08:39 04/07/18 08:45 04/07/18 09:00 Temperature 97.8 F Pulse Rate 58 L 52 L 49 L Respiratory Rate 13 16 20 Blood Pressure 141/65 H 147/63 H 137/61 Pulse Oximetry 98 98 98 04/07/18 09:15 04/07/18 09:30 04/07/18 09:45 Temperature Pulse Rate 42 L 48 L 45 L Respiratory Rate 17 20 20 Blood Pressure 143/63 H 128/60 123/59 L Pulse Oximetry 97 95 94 L 04/07/18 10:00 04/07/18 10:30 04/07/18 11:00 Temperature Pulse Rate 41 L 47 L 52 L Respiratory Rate 12 9 L 12 Blood Pressure 120/58 L 121/59 L 110/55 L Pulse Oximetry 94 L 95 94 L 04/07/18 12:00 04/07/18 12:45 04/07/18 19:18 Temperature 97.9 F 97.4 F L Pulse Rate 51 L 52 L 58 L Respiratory Rate 10 L 12 22 Blood Pressure 112/56 L 110/55 L Pulse Oximetry 93 L 95 95 04/07/18 19:40 04/07/18 21:26 04/07/18 23:49 Temperature 97.4 F L 98.8 F Pulse Rate 68 74 Respiratory Rate 18 17 18 Blood Pressure 135/58 L 115/56 L Pulse Oximetry 95 95 04/08/18 04:36 Temperature 98.3 F Pulse Rate 66 Respiratory Rate 18 Blood Pressure 121/63 Pulse Oximetry 95 Intake & Output 04/07/18 04/08/18 04/08/18 18:59 06:59 18:59 Intake Total 1312.37 / 1312.37 2009 Output Total 200 / 200 Balance 1112.37 / 1112.37 2009 Weight 86 kg Intake: IV 512.37 / 512.37 1050 / 1050 LR 1000 mL Inj 1,000 ML @ 80 1000 / 1000 mls/hr IV.CONT .[id number] [facility] Rx# :[id number] Cyklokapron Inj 1,237 MG In NS 112.37 / 112.37 Inj 100 ML @ 200 mls/hr IV.SIG ONCE RED Rx#:[id number] Vancomycin Inj 1,000 MG In NS 250 / 250 Inj 250 ML @ 250 mls/hr IV.SIG BELT MACHINE OPERATOR RED Rx#:[id number] Ancef 2 GM Premix Inj 2 gm In 150 / 150 50 / 50 50 ml @ 100 mls/hr IV.SIG Q6H RED Rx#:[id number] Oral 960 / 960 Anesthesia Amount 800 / 800 Output: Estimated Blood Loss 200 / 200 Other: # Voids 4 # Urine Diapers 1 Date of Last Bowel Movement 04/06/18 04/06/18 04/06/18 Narrative: in bed, nad dressing c/d/i thigh soft neg homans nvi Results - Labs CBC & Chem 7: 04/08/18 06:09 Laboratory Results - last 24 hr 04/07/18 04/08/18 06:00 06:09 Hgb 11.8 Hct 35.1 Bld Prod Order Comment - Imaging Impressions Hip X-Ray 04/07/18 06:38 CONCLUSION: Anatomic alignment. Alex Silva MD FACR Assessment and Plan - Ortho Post Op Day # 1 - Assessment and Plan s/p L [id number] posterior approach wbat - posterior hip precautions maintain dressing asa 81 d/c planning home - cleared today if does well in pt f/up dr. adkins 2 weeks
[2018-04-08 08:37] VITALS: BP 127/76; PULSE 69; RESP 22; TEMP 98.6; O2SAT 93
--- NOTE | 2018-04-08 09:27 | P.DCO ---
- Physical Therapy Physical Therapy: Gait training, Safety evaluation, Transfer training, bed to chair Hip: Total hip, Protocol: Left, Posterior hip precautions Left Lower Extremity Weight Bearing: Weight bearing as tolerated - Nursing RN days per week: 1 Nursing: Dressing changes - Case Management Consult Case Management Consult-Home Health: Yes - Certification Need for Home Health services: I have seen patient Lupe Oconnell on 04/08/18. My clinical findings support the need for the requested home health care services because: Need for Home Health Services: Limited ability to care for self, High risk of falls Homebound Certification: I certify that my clinical findings support that this patient is homebound because: Homebound Certification: Post-op weakness, Unsteady gait/balance
--- NOTE | 2018-04-10 13:01 | MD ---
cc: Iasuro Cartagena MD DATE OF DISCHARGE: 04/08/2018 ADMITTING DIAGNOSIS: Severe degenerative osteoarthritis of left hip. DISCHARGE DIAGNOSIS: Severe degenerative osteoarthritis of left hip. HISTORY OF PRESENT ILLNESS: This patient is a 72-year-old female who has been a longstanding patient of Dr. Mendez [facility]. Currently, she is being treated for progressive left hip pain. The patient states the pain has been present for many years and is currently limiting her ability to ambulate safely. She notes she has a severe aching sensation in the left hip region with any type of weightbearing. She notes she has no alleviating factors, although she has tried medications, assistive devices, physical therapy, and home exercise program without relief of symptoms. She has x-ray evidence of severe degenerative osteoarthritis, left hip. While in the office, the patient was counseled on her diagnosis and treatment options. Risks, benefits, and indications were discussed. The patient did elect to proceed with surgical intervention to include a left total hip arthroplasty. Date of surgery 04/07/2018. Left total hip arthroplasty, posterior approach. POSTOP: After surgery, the patient was admitted to [facility] where she received appropriate medical management, pain control, DVT prophylaxis, as well as physical therapy. DISCHARGE: Once being discharged from the hospital, the patient was cleared to go home where she will receive home health care and home physical therapy. She is in stable condition. She may weight bear as tolerated with posterior hip precautions. She has been instructed on wound care management. She has been provided prescriptions for pain control and DVT prophylaxis. She has also been provided a followup appointment in approximately 2 weeks from her date of surgery. The patient has asked appropriate questions, which have been answered. The patient has been discharged. Dictated by DONTAE Johnson Isauro Cartagena MD [email or web address] , 08:30 AM , 08:34 AM
== END 2018-04-08 11:35 | disposition home health service (06) | DRG 470 ==
LOC: HSDI 05:15 → N06 13:01
PROVIDERS: ADMIT Orthopaedic Surgery Sports Medicine; ATTEND Orthopaedic Surgery Sports Medicine
CPT/HCPCS: 73502; 85014; 85018; 86850; 86900; 86901; 86902; 86920; 86922; 94150; 97110; 97116; 97162; 97166; C1776; C9290; J0690; J1100; J1580; J2270; J2405; J2704; J2710; J3010; J3370; J7050; J7120